=== PATIENT | female | born 1995 | race African-American/Black ===

== ENCOUNTER 2019-11-19 22:43 | Emergency (ER) | payer OTHER ==
[~2019-11-19] VITALS: Ht 152.4 cm; Wt 66.0 kg
[2019-11-19] MEDS ORDERED: KETOROLAC 30 MG/1 ML ONE (23:13)
[2019-11-19] MEDS ORDERED: HYDROmorphone 1 MG/ML, 1ML INJ ONE (23:13)
[2019-11-19] MEDS ORDERED: ONDANSETRON 2MG/ML, 2ML ONE (23:14)
[2019-11-19] MEDS ORDERED: ONDANSETRON 2MG/ML, 2ML IVPush ONE (23:30)
[2019-11-19] MEDS ORDERED: KETOROLAC 30 MG/1 ML IVPush ONE (23:30)
[2019-11-19] MEDS ORDERED: MORPHINE SULFATE 4 MG/ML, 1ML IVPush PRN (23:30)
[2019-11-19] MEDS ORDERED: SODIUM CHLORIDE 0.9% 1,000ML IVBOLUS ONE (23:30)
[2019-11-19 23:54] LABS: RED BLOOD COUNT 2.88 x10^6/uL (3.82-5.3)
[2019-11-19 23:56] LABS: ANION GAP 6 mmol/L (5-15); CALCIUM 8.3 mg/dL (8.5-10.1); CHLORIDE 106 mmol/L (98-107); CREATININE 0.56 mg/dL (0.55-1.02)
[2019-11-19 23:57] LABS: ALANINE AMINOTRANSFERASE 42 U/L (12-78); ALBUMIN 3.8 g/dL (3.4-5.0); MEAN CORPUSCULAR HEMOGLOBIN 32.4 pg (27.0-34.8); MEAN CORPUSCULAR VOLUME 98.3 fL (80-100); MEAN PLATELET VOLUME 7.9 fL (7.4-10.4); PLATELET COUNT 509 x10^3/uL (130-400); RED CELL DISTRIBUTION WIDTH 17.4 % (9.6-15.2)
[2019-11-20 00:01] LABS: ALKALINE PHOSPHATASE 111 U/L (45-117); TOTAL PROTEIN 7.9 g/dL (6.4-8.2)
[2019-11-20 00:11] LABS: ABSOLUTE RETICS # 0.081 x10^6/uL (0.5-2.5); RETICULOCYTE COUNT % 2.85 % (0.5-1.5)
[2019-11-20 00:13] LABS: MD YES
[2019-11-20 00:15] LABS: <PLATELET ESTIMATE> INCREASED; ANISOCYTOSIS 1+; EOS#(MANUAL) 0.11 x10^3/uL (0.0-0.4); EOS% (MANUAL) 1 % (1-7); HYPOCHROMIA 1+; LYMPH#(MANUAL) 3.66 x10^3/uL (1-3.4); LYMPHS% (MANUAL) 33 % (22-44); MONOS#(MANUAL) 0.11 x10^3/uL (0.3-2.7); MONOS% (MANUAL) 1 % (2-9); NRBC % (MANUAL) 1 % (0-1); SEG#(MANUAL) 7.22 x10^3/uL (1.8-6.8); SEGS% (MANUAL) 65 % (42-75)
[2019-11-20 00:16] LABS: <PLT MORPHOLOGY> NORMAL PLT MORPH
[2019-11-20] MEDS ORDERED: HYDROmorphone 1 MG/ML, 1ML INJ IV ONE (00:30)
[2019-11-20 00:44] VITALS: BP 110/68
== END 2019-11-20 00:49 | disposition home or self-care (01) ==
LOC: ED 22:50
DX: D57.00 Hb-SS disease with crisis, unspecified (principal); R11.10 Vomiting, unspecified
CPT/HCPCS: 36415; 80053; 84703; 85025; 85045; 96361; 96374; 96375; 99283; J1170; J1885; J2405; J7030

== ENCOUNTER 2019-12-31 14:50 | Emergency (ER) | payer OTHER ==
[~2019-12-31] VITALS: Ht 152.4 cm; Wt 65.0 kg
[2019-12-31 15:44] LABS: ALBUMIN 4.1 g/dL (3.4-5.0); ANION GAP 8 mmol/L (5-15); CALCIUM 8.6 mg/dL (8.5-10.1); CHLORIDE 106 mmol/L (98-107); CREATININE 0.68 mg/dL (0.55-1.02)
--- NOTE | 2019-12-31 16:06 | NUR ---
Per pharmacy for [place] to clear cath max 2 total doses, each dose max 90 min. md notified. will wait until coag studies back before attempting.
[2019-12-31 16:10] LABS: INTERNATIONAL NORMALIZED RATIO 1.13 (0.93-1.1)
[2019-12-31 16:23] LABS: MD YES; MEAN CORPUSCULAR HEMOGLOBIN 39.9 pg (27.0-34.8); MEAN CORPUSCULAR HGB CONC 33.5 g/dL (32.4-35.8); MEAN CORPUSCULAR VOLUME 119.1 fL (80-100); MEAN PLATELET VOLUME 8.5 fL (7.4-10.4); PLATELET COUNT 252 x10^3/uL (130-400); RED CELL DISTRIBUTION WIDTH 37.3 % (9.6-15.2)
[2019-12-31 16:24] LABS: EOS#(MANUAL) 0.05 x10^3/uL (0.0-0.4); EOS% (MANUAL) 1 % (1-7); LYMPH#(MANUAL) 2.75 x10^3/uL (1-3.4); LYMPHS% (MANUAL) 54 % (22-44); MONOS% (MANUAL) 4 % (2-9); NRBC % (MANUAL) 18 % (0-1); SEG#(MANUAL) 2.09 x10^3/uL (1.8-6.8); SEGS% (MANUAL) 41 % (42-75)
[2019-12-31 16:26] LABS: ANISOCYTOSIS 2+; MICROCYTOSIS 1+; POLYCHROMASIA 1+
[2019-12-31 16:27] LABS: TARGET CELLS 1+
[2019-12-31 16:29] LABS: SCHISTOCYTES 1+
[2019-12-31] MEDS ORDERED: CATHFLO-ALTEPLASE 2 MG/2 ML CATHFLUSH ONE (16:30)
[2019-12-31 16:31] LABS: <PLATELET ESTIMATE> ADEQUATE; <PLT MORPHOLOGY> NORMAL PLT MORPH; OVALOCYTES 1+
[2019-12-31] MEDS ORDERED: POTASSIUM CHLORIDE 20 MEQ TAB.ER.PRT PO ONE (17:00)
[2019-12-31] MEDS ORDERED: POTASSIUM CHLORIDE 20 MEQ TAB.ER.PRT ONE (18:26)
[2019-12-31 18:44] VITALS: BP 105/67
--- NOTE | 2019-12-31 18:46 | NUR ---
Patient & law enforcement given discharge instructions and they have confirmed that they understand the instructions. Patient ambulatory with steady gait.
== END 2019-12-31 18:48 | disposition home or self-care (01) ==
LOC: ED 18:40
DX: E87.6 Hypokalemia (principal); I81 Portal vein thrombosis
CPT/HCPCS: 36415; 71046; 80048; 82040; 85025; 85610; 85730; 99284; J2997